=== PATIENT | female | born 1945 | race Caucasian/White ===

== ENCOUNTER 2019-03-01 08:37 | Day surgery (SDC) | payer MEDICARE ==
[~2019-03-01] VITALS: Ht 162.6 cm; Wt 84.8 kg
[~2019-03-01 08:37] MED LIST: ASPI81TA26 PO; ATEN25TA PO; CENTTAB10 PO; COQ1200C3 PO; EPIP0.3I2 IM; GINK60TA2 PO; MULTTAB24 PO; NS 1,000 ML IV ONE; PRAV10TA4 PO; PROBCAP14 PO; VITA10006 PO
[2019-03-01] MEDS ORDERED: fentaNYL 100 MCG/2 ML INJECTION (J3010) As Ordered ONE (09:55)
[2019-03-01] MEDS ORDERED: MIDAZOLAM INJ 2 MG/2 ML VIAL (J2250) As Ordered ONE (09:55)
--- NOTE | 2019-03-01 10:45 | ROOR ---
Patient Name: Arlyn Gaspar Procedure Date: 03/01/2019 10:19 AM Date of : 1945 Age: 73 Room: [facility] Gender: Female Note Status: Finalized Procedure: Colonoscopy Indications: High risk colon cancer surveillance: Personal history of colonic polyps, Last colonoscopy: November 2015 Patient Profile: (allergy to propofol) Providers: Eduar CASTILLO MD Referring MD: Isamar Rosas MD Requesting Provider: Medicines: Monitored Anesthesia Care, Fentanyl IV, Midazolam IV, See the Anesthesia note for documentation of the administered medications Complications: No immediate complications. Procedure: Pre-Anesthesia Assessment: - The heart rate, respiratory rate, oxygen saturations, blood pressure, adequacy of pulmonary ventilation, and response to care were monitored throughout the procedure. The Colonoscope was introduced through the anus and advanced to the terminal ileum, with identification of the appendiceal orifice and IC valve. The colonoscopy was performed without difficulty. The patient tolerated the procedure well. The quality of the bowel preparation was good. Findings: Multiple medium-mouthed diverticula were found in the sigmoid colon. Small Internal Hemorrhoids. The exam was otherwise without abnormality on direct and retroflexion views. Impression: - Diverticulosis in the sigmoid colon. - Small Internal Hemorrhoids. - The colon examination was otherwise normal on direct and retroflexion views. - No specimens collected. Recommendation: - Repeat colonoscopy in 5 years for surveillance. Eduar Castillo MD Eduar CASTILLO MD 03/01/2019 10:44:46 AM Electronically signed by Eduar CASTILLO MD Number of Addenda: 0 Note Initiated On: 03/01/2019 10:19 AM Estimated Blood Loss: Estimated blood loss: none.
[2019-03-01] MEDS ORDERED: LIDOCAINE 2% INJ 100 MG/5 ML SDV (FOR ANES.) As Ordered ONE (11:03)
[2019-03-01 11:17] VITALS: BP 140/82
== END 2019-03-01 11:20 | disposition home or self-care (01) ==
LOC: M OPP 08:37
PROVIDERS: ATTEND Internal Medicine Gastroenterology
DX: Z12.11 Encounter for screening for malignant neoplasm of colon (principal); Z86.010 Personal history of colon polyps; K57.30 Diverticulosis of large intestine without perforation or abscess without bleeding; Z79.82 Long term (current) use of aspirin; Z79.899 Other long term (current) drug therapy; Z88.8 Allergy status to other drugs, medicaments and biological substances; Z91.018 Allergy to other foods
CPT/HCPCS: G0105; J2250; J3010